=== PATIENT | female | born 1995 | race Caucasian/White ===

== ENCOUNTER → 2022-07-18 15:39 | Outpatient (CLI) | payer OTHER, SELFPAY ==
[2022-07-18 16:11] LABS: Add Manual Diff / Slide Review NO; Basophils Absolute Auto 0 /uL (0-100); Basophils Percent Auto 0.5 % (0-2); Eosinophils Absolute Auto 100 /uL (0-450); Eosinophils Percent Auto 1.3 % (2-4); Hematocrit 35.1 % (36-46); Lymphocytes Absolute Auto 1700 /uL (1100-4500); Mean Corpuscular HGB Conc 34.1 % (30-36); Mean Corpuscular Hemoglobin 29.1 PG (26-34); Mean Corpuscular Volume 85.4 fL (80-100); Monocytes Absolute Auto 600 /uL (0-900); Monocytes Percent Auto 6.9 % (3-14); Neutrophils Absolute Auto 6100 /uL (1500-7000); Neutrophils Percent Auto 71.3 % (50-75); Platelet Count 232 X10^3/uL (150-400); Red Blood Cell Count 4.11 X10^6/uL (4.0-5.2); White Blood Cell Count 8.6 X10^3/uL (4.5-11.0)
[2022-07-18 16:36] LABS: Alanine Aminotransferase 16 IU/L (<35); Albumin 3.6 g/dL (3.5-5.0); Albumin Globulin Ratio 1.3 (1.0-2.8); Alkaline Phosphatase 42 U/L (38-126); Aspartate Aminotransferase 22 IU/L (14-36); BUN Creatinine Ratio 17.5 (6-22); Bilirubin Total 0.2 mg/dL (0.2-1.3); Blood Urea Nitrogen 18 mg/dL (7-17); Calcium 8.3 mg/dL (8.4-10.2); Carbon Dioxide 27 mmol/L (22-32); Chloride 106 mmol/L (98-107); Estimated Glomerular Filt Rate > 60 mL/min (>60); Globulin 2.7 g/dL (1.7-4.1); Glucose 48 mg/dL (70-100); HEMOLYSIS < 15 (0-50); Potassium 3.8 mmol/L (3.4-5.1); Sodium 139 mmol/L (137-145); Total Protein 6.3 g/dL (6.3-8.2)
[2022-07-18 17:50] LABS: Appearance Urine UA CLEAR; Bilirubin Urine UA NEGATIVE (NEGATIVE); Color Urine UA YELLOW; Glucose Urine UA NEGATIVE (Negative); Ketones Urine UA NEGATIVE (NEGATIVE); Leukocyte Esterase Urine UA NEGATIVE (NEGATIVE); Nitrite Urine UA NEGATIVE (Negative); Occult Blood Urine UA TRACE-LYSED (Negative); Protein Urine UA 2+ (Negative); Specific Gravity Urine UA 1.025 (1.000-1.035); Urobilinogen Urine UA 0.2 E.U./dL (0.2)
[2022-07-18 17:51] LABS: pH Urine UA 5.5 (4.5-8.0)
[2022-07-19 08:09] LABS: RPR Screen Non Reactive (Non Reactive)
[2022-07-21 18:29] LABS: HIV 1 & 2 Ab/Ag 4th Gen Combo NEGATIVE (NEGATIVE); Hep C Virus Ab w/Reflex Quant NEGATIVE s/c (NEGATIVE)
[2022-07-21 19:51] LABS: Hepatitis B Surface Antigen NEGATIVE s/c (NEGATIVE)
== END ==
PROVIDERS: PCP Internal Medicine; Referring Provider Obstetrics & Gynecology; Visit Provider Obstetrics & Gynecology
DX: Z34.01 Encounter for supervision of normal first pregnancy, first trimester (principal); N05.9 Unspecified nephritic syndrome with unspecified morphologic changes
CPT/HCPCS: 36415; 80053; 80055; 81003; 86803; 86850; 86900; 86901; 87389

== ENCOUNTER → 2022-08-13 10:53 | Outpatient (CLI) | payer OTHER, SELFPAY ==
--- NOTE | 2022-08-13 10:55 | DI.US.S_ITS ---
PROCEDURE: US OB <= 14 WEEKS FETUS INDICATIONS: DATES OUTSIDE/PRIOR DATING DATA: Last menstrual period (LMP): 05/21/22. LMP-based estimated date of delivery (NATALIE): 03/25/23 First dating scan (date and location): Current study, 08/13/22 Estimated date of delivery (NATALIE) from first dating scan: 03/23/23. TECHNIQUE: Real-time scanning was performed of the fetus and maternal pelvic organs, with image documentation. Endovaginal scanning was also performed to better visualize the fetus and maternal ovaries. COMPARISON: None. FINDINGS: Embryo: An intrauterine is present including a single pole with an average crown-rump length of 1.1 cm corresponding to a eight week two day plus or minus five days gestation.. There is detectable cardiac activity in the fetus at a rate of 169 beats per minute. A normal yolk sac and unfused amnion are present. Maternal organs: The cervix is closed. There is no subchorionic hemorrhage around the gestational sac. Both ovaries have a normal appearance. The corpus luteum was not identified. No free fluid or adnexal mass. IMPRESSION: 1. Single living intrauterine with a gestational age by today's measurements eight weeks two days, in good agreement with the clinical gestational age. 2. Closed cervix and no subchorionic hemorrhage seen. We strive to produce accurate, complete, and clear reports of imaging services. To assist us in improving patient care, this report was composed using standard report templates and voice recognition software. Therefore, it may contain abnormal punctuation, insertions and/or omissions. Occasional wrong-word or sound-alike substitutions may occur. Though we review the report and make efforts to correct it, we do recommend that the report be read carefully in proper context to recognize any text inaccuracies. Dictated by: Destiny David M.D. on 08/13/2022 at 13:09 Approved by: Destiny David M.D. on 08/13/2022 at 13:26
== END ==
PROVIDERS: Referring Provider Obstetrics & Gynecology; Visit Provider Obstetrics & Gynecology
DX: Z34.01 Encounter for supervision of normal first pregnancy, first trimester (principal); Z3A.08 8 weeks gestation of pregnancy
CPT/HCPCS: 76801; 76830

== ENCOUNTER → 2022-09-10 08:53 | Outpatient (CLI) | payer OTHER, SELFPAY ==
[2022-09-10 15:09] LABS: Urine N gonorrhoeae NOT DETECTED
[2022-09-10 15:11] LABS: Urine Chlamydia NOT DETECTED
== END ==
PROVIDERS: PCP Obstetrics & Gynecology; Visit Provider Obstetrics & Gynecology
DX: Z34.01 Encounter for supervision of normal first pregnancy, first trimester (principal); Z3A.12 12 weeks gestation of pregnancy
CPT/HCPCS: 87491; 87591

== ENCOUNTER → 2022-09-10 09:54 | Outpatient (CLI) | payer OTHER, SELFPAY ==
[2022-09-12 08:08] LABS: Varicella IgG Antibody 528 index (Immune >165)
== END ==
PROVIDERS: PCP Obstetrics & Gynecology; Referring Provider Obstetrics & Gynecology; Visit Provider Obstetrics & Gynecology
DX: Z34.01 Encounter for supervision of normal first pregnancy, first trimester (principal); Z3A.12 12 weeks gestation of pregnancy
CPT/HCPCS: 36415; 86787; 87491; 87591

== ENCOUNTER → 2022-10-06 10:52 | Outpatient (CLI) | payer OTHER, SELFPAY ==
[2022-10-06 16:04] LABS: Creatinine Urine Random 200.1 mg/dL; Protein (Total) Urine Random 171 mg/dL (0-12); Protein Creatinine Ratio Urine 0.85 GRAM/24H
== END ==
PROVIDERS: PCP Obstetrics & Gynecology; Visit Provider Obstetrics & Gynecology
DX: Z34.02 Encounter for supervision of normal first pregnancy, second trimester (principal); Z3A.15 15 weeks gestation of pregnancy
CPT/HCPCS: 82570; 84156

== ENCOUNTER → 2022-10-14 14:06 | Outpatient (CLI) | payer OTHER, SELFPAY ==
--- NOTE | 2022-10-14 14:07 | DI.US.S_ITS ---
PROCEDURE: US OB LIMITED INDICATIONS: Evaluate cord insertion site. Family history of gastroschisis OUTSIDE/PRIOR DATING DATA: Last menstrual period (LMP): 06/18/2022. LMP-based estimated date of delivery (NATALIE): 03/25/2023. First dating scan (date and location): 08/13/2022. Estimated date of delivery (NATALIE) from first dating scan: 03/23/2023. TECHNIQUE: Real-time scanning was performed of the fetus, with image documentation and biometric measurements. Endovaginal scanning: Not performed COMPARISON: [facility], , US OB <= 14 WEEKS FETUS, 08/13/2022, 11:19. FINDINGS: General: A single living intrauterine gestation is present. Presentation: Variable. Placenta: Placental position is posterior , without previa. Amniotic fluid index: 12.0 cm, normal range is 5-24 cm. Single deepest vertical pocket is 3.8 cm. heart rate: 153 beats per minute. Maternal cervical canal: 3.8 cm long. Normal lower limit is 2.5 cm. Other: cord insertion site appears unremarkable. stomach/abdomen, both kidneys, placental cord insertion, urinary bladder, appear unremarkable. Full anatomy survey not performed due to gestational age. IMPRESSION: 1. Single living intrauterine . 2. cord insertion site appears unremarkable. We strive to produce accurate, complete, and clear reports of imaging services. To assist us in improving patient care, this report was composed using standard report templates and voice recognition software. Therefore, it may contain abnormal punctuation, insertions and/or omissions. Occasional wrong-word or sound-alike substitutions may occur. Though we review the report and make efforts to correct it, we do recommend that the report be read carefully in proper context to recognize any text inaccuracies. Dictated by: Tray Jacobson M.D. on 10/14/2022 at 16:26 Approved by: Tray Jacobson M.D. on 10/14/2022 at 16:33
[2022-11-11 14:06] LABS: Results See Report
[2022-11-11 14:08] LABS: AFP Value 20.8; Insulin Dep Diabetes Not Provided
== END ==
PROVIDERS: Referring Provider Obstetrics & Gynecology; Visit Provider Obstetrics & Gynecology
DX: Z34.02 Encounter for supervision of normal first pregnancy, second trimester; Z3A.16 16 weeks gestation of pregnancy
CPT/HCPCS: 36415; 76815; 82105

== ENCOUNTER → 2022-10-16 15:42 | Outpatient (CLI) | payer OTHER, SELFPAY ==
[2022-10-16 20:02] LABS: Collection Time Urine 24 Hours; Protein (Total) Urine Random 146 mg/dL (0-12); Total Protein 24 Hour Urine 1971 mg/day (42-225); Total Volume Urine 1350 mL
== END ==
PROVIDERS: Referring Provider Obstetrics & Gynecology; Visit Provider Obstetrics & Gynecology
DX: O12.10 Gestational proteinuria, unspecified trimester (principal)
CPT/HCPCS: 84156

== ENCOUNTER → 2022-11-03 10:04 | Outpatient (CLI) | payer OTHER, SELFPAY ==
--- NOTE | 2022-11-03 10:08 | DI.US.S_ITS ---
PROCEDURE: US OB >= 14 WEEKS FETUS INDICATIONS: Anatomy Scan OUTSIDE/PRIOR DATING DATA: Last menstrual period (LMP): 06/18/2022 LMP-based estimated date of delivery (NATALIE): 03/25/2023 First dating scan (date and location): 08/13/2022 Estimated date of delivery (NATALIE) from first dating scan: 04/02/2023 The calculations are made using the working NATALIE of 03/25/2023 TECHNIQUE: Real-time scanning was performed of the fetus, with image documentation and biometric measurements. Endovaginal scanning: Not performed. COMPARISON: [facility], OB LIMITED, 10/14/2022, 14:23. FINDINGS: General: A single living intrauterine gestation is present. Presentation: Vertex Placenta: Placental position is posterior, without previa. Amniotic fluid index: 13 cm, normal range is 5-24 cm. Single deepest vertical pocket is 4.0 cm. heart rate: 140 beats per minute. Maternal cervical canal: 3.5 cm long. Normal lower limit is 2.5 cm. biometrics: Biparietal diameter: 4.7 cm, 20 weeks 1 day Head circumference: 17.5 cm, 20 weeks 0 days Abdominal circumference: 15.3 cm, 20 weeks 3 days Femur length: 3.2 cm, 20 weeks 0 days Clinically estimated gestational age: 19 weeks 5 days Composite gestational age from present scan: 20 weeks 1 day Estimated weight and percentile: 340 grams, 75th percentile Anatomic survey: Neuro: Ventricles are non-dilated at less than 10 mm. Cisterna magna is normal at 3-11 mm. Cerebellum is normal in size and morphology. Nuchal skin fold: Normal at less than 6 mm between 14-21 weeks gestational age. Face: Nose and lips, facial profile are normal. Spine: No evidence for spina bifida. Heart: 4-chambered heart is present, with normal ventricular outflow tracts. Isolated echogenic intracardiac focus is seen in the left ventricle. Diaphragm: Diaphragm is intact. Stomach: Left-sided stomach is present. Kidneys: No hydronephrosis. Normal is less than 5 mm in 2nd trimester, less than 7 mm in 3rd trimester. Cord: 3-vessel cord has orthotopic insertion. Bladder: Normal in size. Extremities: All 4 extremities identified. IMPRESSION: 1. Single live intrauterine with appropriate interval growth. Estimated weight 340 grams, 75th percentile for gestational age. 2. Echogenic intracardiac focus: 1.4-1.8 fold likelihood of Down syndrome. If isolated finding, consider aneuploidy screening with cell-free DNA. If aneuploidy screen is negative, no further evaluation needed. 3. Otherwise, anatomic survey is within normal limits. We strive to produce accurate, complete, and clear reports of imaging services. To assist us in improving patient care, this report was composed using standard report templates and voice recognition software. Therefore, it may contain abnormal punctuation, insertions and/or omissions. Occasional wrong-word or sound-alike substitutions may occur. Though we review the report and make efforts to correct it, we do recommend that the report be read carefully in proper context to recognize any text inaccuracies. Approved by: Tray Clemens M.D. on 11/06/2022 at 11:16
== END ==
PROVIDERS: Referring Provider Obstetrics & Gynecology; Visit Provider Obstetrics & Gynecology
DX: Z34.92 Encounter for supervision of normal pregnancy, unspecified, second trimester (principal); Z3A.20 20 weeks gestation of pregnancy
CPT/HCPCS: 76811

== ENCOUNTER → 2022-11-12 17:32 | Outpatient (CLI) | payer OTHER, SELFPAY | PROVIDERS: Visit Provider Obstetrics & Gynecology | DX: Z34.02 Encounter for supervision of normal first pregnancy, second trimester (principal); Z3A.21 21 weeks gestation of pregnancy | CPT/HCPCS: 87086 ==